=== PATIENT | male | born 1965 | race Caucasian/White ===

== ENCOUNTER 2017-09-04 18:26 | Inpatient (IN) ==
--- NOTE | 2017-09-04 19:48 | Emergency Department Note ---
Disposition Clinical Impression: SIRS (systemic inflammatory response syndrome), Fever of unknown origin (FUO) Disposition: Admitted As Inpatient Condition: Good General Adult HPI - General Chief complaint: ED Back Pain/Injury Stated complaint: Left shoulder pain Time Seen by Provider: 09/04/17 19:13 Source: patient, family Limitations: no limitations Nursing Notes Reviewed: Yes Vital Signs Reviewed: Yes - History of Present Illness HPI Narrative: Patient presents today for evaluation of back pain. Patient states that he thought he felt warm but upon presentation his fever is 103. Patient is tachycardic at 120. Patient states that he has back pain in his left shoulder blade. 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 Patient is felt pain since this time. He states that the pain has been worse with movement of his arm but still has full range of motion and complete functional use. Patient does not have chest pain and does not have shortness of breath. Patient does not have viral URI symptoms or influenza symptoms. Patient will undergo further evaluation of sepsis. Pain Scale: 10 - Related Data Allergies Allergy/AdvReac Type Severity Reaction Status Date / Time No Known Allergies Allergy Verified 09/04/17 18:31 Review of Systems: CONSTITUTIONAL: Fever No weight loss, chills, weakness or fatigue. HEENT: Eyes: No visual changes. Ears, Nose, Throat: No hearing loss, difficulty talking or unable to swallow. SKIN: No rash or itching. CARDIOVASCULAR: No chest pain, chest pressure or chest discomfort. No palpitations or edema. RESPIRATORY: No shortness of breath, cough or sputum. GASTROINTESTINAL: No anorexia, nausea, vomiting or diarrhea. No abdominal pain or blood. GENITOURINARY: No burning on urination or hematuria. NEUROLOGICAL: No headache, dizziness, syncope, paralysis, ataxia, numbness or tingling in the extremities. No change in bowel or bladder control. MUSCULOSKELETAL: back pain; No muscle pain, joint pain or stiffness. Past Medical History - Past Medical History Medical history: Reports: no medical history Psychiatric history: Reports: no psych history - Social History Smoking Status: Never smoker Alcohol use: Reports: none Drug use: Reports: none Physical Exam General: Well appearing, nontoxic, no acute distress Head: Normocephalic Atraumatic Eyes: PERRL, EOMI ENT: Airway patent, no stridor Neck: supple, no meningismus Chest: Lungs clear to auscultation bilateral Cardiac: Regular rhythm, no murmurs, rubs or gallops Abdomen: soft, nontender, nondistended; no guarding, rebound, or tenderness to percussion Musculoskeletal: Calves symmetric, nontender, no palpable cord Skin: No rash, normal skin tone Neuro: Alert and Oriented to person, place, and time; No focal deficit, CN 2-12 symmetric and intact - General Limitations: no limitations General appearance: alert, in no apparent distress Course - Reevaluation(s) Reevaluation #1: On reevaluation the patient's left shoulder pain and back pain have resolved. Patient was only given a gram of Tylenol and was not given any narcotics. Patient states he still feels a little woozy but does not have chest pain pain abdominal pain or nausea vomiting diarrhea problems with urination. Reevaluation #2: The patient's urine does have large amount of blood with only a few RBCs. CPK is normal. Lactic acid mildly elevated. He has been given empiric antibiotics and will be admitted for further observation. - Consultations Consultation #1: Discussed with Dr. Smith. Patient accepted for admission. Consultation #2: Discussed with radiologist at the request of the hospitalist. With a can see on the CT which includes the scapula and most of the surrounding muscles there is no myositis or atrophy. The CT scan does not completely evaluate the entirety of the glenohumeral joint. If there is concern for septic joint within this joint and an MRI would be a better study to CT scan. I relayed these messages to the hospitalist. However, I do not believe that this patient has a septic shoulder as his pain was relieved in the emergency department and he has full range of motion without swelling or erythema. Vital Signs Temperature 103.1 F H 09/04/17 18:28 Pulse Rate 125 09/04/17 18:28 Respiratory Rate 18 09/04/17 18:28 Blood Pressure 127/81 09/04/17 18:28 O2 Sat by Pulse Oximetry 95 09/04/17 18:28 Temperature 100.1 F H 09/04/17 23:58 Pulse Rate 95 09/04/17 23:58 Respiratory Rate 16 09/04/17 23:58 Blood Pressure 136/80 09/04/17 23:58 O2 Sat by Pulse Oximetry 96 09/04/17 23:58 Oxygen Delivery Oxygen Delivery Room Air Medical Decision Making - Medical Records Medical records reviewed: Yes I reviewed the patient's medical records. - Lab Data Lab results reviewed: Yes I reviewed the patient's lab results. Result diagrams: 09/04/17 19:58 09/04/17 19:58 Lab Results 09/04/17 09/04/17 09/04/17 Range/Units 19:53 19:58 19:58 WBC 14.3 H (4.3-11.1) K/mcL RBC 4.88 (4.19-5.50) M/mcL Hgb 15.7 (12.9-16.9) g/dL Hct 46.2 (37.5-50.1) % MCV 94.7 (83.0-100.0) fL MCH 32.2 (28.0-33.3) pg MCHC 34.0 (31.6-35.5) g/dL RDW 11.9 (11.5-14.5) % Plt Count 162 (140-400) K/mcL MPV 10.9 (9.4-12.4) fL Immature Gran % 0.5 (0-4) % Seg Neutrophils % 86.9 % Lymphocytes % 7.7 % Monocytes % 4.8 % Eosinophils % 0.0 % Basophils % 0.1 % Neutrophils # 12.4 H (1.6-8.9) K/mcL Lymphocytes # 1.1 (0.6-4.6) K/mcL Monocytes # 0.7 (0.0-1.3) K/mcL Eosinophils # 0.0 (0.0-0.6) K/mcL Basophils # 0.0 (0.0-0.2) K/mcL ESR (0-10) mm/hr PT 15.2 H (9.4-12.1) Seconds INR 1.4 APTT 28.3 (26.0-36.0) Seconds Sodium (136-145) mEq/L Potassium (3.5-5.1) mEq/L Chloride (98-107) mEq/L Carbon Dioxide (23-29) mEq/L BUN (6-20) mg/dL Creatinine (0.70-1.30) mg/dL Est GFR ( Amer) (> 60) Est GFR (Non-Af Amer) (> 60) BUN/Creatinine Ratio (6-26) Glucose (70-105) mg/dL Calculated Osmolality (280-300) Lactic Acid 2.4 H (0.5-2.2) mmol/L Calcium (8.6-10.3) mg/dL Phosphorus (2.7-4.5) mg/dL Magnesium (1.6-2.6) mg/dL Total Bilirubin (0.3-1.0) mg/dL Direct Bilirubin (0.0-0.2) mg/dL Indirect Bilirubin (0.0-1.2) mg/dL AST (13-39) Units/L ALT (7-52) Units/L Alkaline Phosphatase (34-104) Units/L Creatine Kinase (30-223) Units/L Troponin I (< 0.04) ng/mL C-Reactive Protein (Less than 10) mg/L Serum Total Protein (6.4-8.9) g/dL Albumin (3.5-5.7) g/dL Globulin (2.4-3.5) g/dL Albumin/Globulin Ratio (1.1-2.2) Urine Color (Yellow) Urine Clarity (Clear) Urine pH (5.0-8.0) pH Units Ur Specific [place] (1.010-1.025) Urine Protein (Neg-Trace) mg/dL Urine Glucose (UA) (Normal) mg/dL Urine Ketones (Negative) mg/dL Urine Blood (Negative) Urine Nitrite (Negative) Urine Bilirubin (Negative) Urine Urobilinogen (Normal) mg/dL Ur Leukocyte Esterase (Negative) Urine Microscopic RBC (0-3) per hpf Urine Microscopic WBC (0-3) per hpf Ur Squamous Epith Cells (None-Few) per lpf Urine Bacteria (None-Few) per hpf Hyaline Casts (None-Few) per lpf Urine Mucus (Few) Ur Culture Indicated? (NO) 09/04/17 09/04/17 09/04/17 Range/Units 19:58 19:58 19:58 WBC (4.3-11.1) K/mcL RBC (4.19-5.50) M/mcL Hgb (12.9-16.9) g/dL Hct (37.5-50.1) % MCV (83.0-100.0) fL MCH (28.0-33.3) pg MCHC (31.6-35.5) g/dL RDW (11.5-14.5) % Plt Count (140-400) K/mcL MPV (9.4-12.4) fL Immature Gran % (0-4) % Seg Neutrophils % % Lymphocytes % % Monocytes % % Eosinophils % % Basophils % % Neutrophils # (1.6-8.9) K/mcL Lymphocytes # (0.6-4.6) K/mcL Monocytes # (0.0-1.3) K/mcL Eosinophils # (0.0-0.6) K/mcL Basophils # (0.0-0.2) K/mcL ESR 38 H (0-10) mm/hr PT (9.4-12.1) Seconds INR APTT (26.0-36.0) Seconds Sodium 129 L (136-145) mEq/L Potassium 3.6 (3.5-5.1) mEq/L Chloride 99 (98-107) mEq/L Carbon Dioxide 20 L (23-29) mEq/L BUN 18 (6-20) mg/dL Creatinine 1.02 (0.70-1.30) mg/dL Est GFR ( Amer) > 60 (> 60) Est GFR (Non-Af Amer) > 60 (> 60) BUN/Creatinine Ratio 18 (6-26) Glucose 149 H (70-105) mg/dL Calculated Osmolality 273 L (280-300) Lactic Acid (0.5-2.2) mmol/L Calcium 8.8 (8.6-10.3) mg/dL Phosphorus 1.4 L (2.7-4.5) mg/dL Magnesium 2.0 (1.6-2.6) mg/dL Total Bilirubin 0.8 (0.3-1.0) mg/dL Direct Bilirubin 0.2 (0.0-0.2) mg/dL Indirect Bilirubin 0.6 (0.0-1.2) mg/dL AST 20 (13-39) Units/L ALT 29 (7-52) Units/L Alkaline Phosphatase 54 (34-104) Units/L Creatine Kinase 206 (30-223) Units/L Troponin I < 0.03 (< 0.04) ng/mL C-Reactive Protein 128 H (Less than 10) mg/L Serum Total Protein 7.6 (6.4-8.9) g/dL Albumin 4.1 (3.5-5.7) g/dL Globulin 3.5 (2.4-3.5) g/dL Albumin/Globulin Ratio 1.2 (1.1-2.2) Urine Color (Yellow) Urine Clarity (Clear) Urine pH (5.0-8.0) pH Units Ur Specific [place] (1.010-1.025) Urine Protein (Neg-Trace) mg/dL Urine Glucose (UA) (Normal) mg/dL Urine Ketones (Negative) mg/dL Urine Blood (Negative) Urine Nitrite (Negative) Urine Bilirubin (Negative) Urine Urobilinogen (Normal) mg/dL Ur Leukocyte Esterase (Negative) Urine Microscopic RBC (0-3) per hpf Urine Microscopic WBC (0-3) per hpf Ur Squamous Epith Cells (None-Few) per lpf Urine Bacteria (None-Few) per hpf Hyaline Casts (None-Few) per lpf Urine Mucus (Few) Ur Culture Indicated? (NO) 09/04/17 Range/Units 20:05 WBC (4.3-11.1) K/mcL RBC (4.19-5.50) M/mcL Hgb (12.9-16.9) g/dL Hct (37.5-50.1) % MCV (83.0-100.0) fL MCH (28.0-33.3) pg MCHC (31.6-35.5) g/dL RDW (11.5-14.5) % Plt Count (140-400) K/mcL MPV (9.4-12.4) fL Immature Gran % (0-4) % Seg Neutrophils % % Lymphocytes % % Monocytes % % Eosinophils % % Basophils % % Neutrophils # (1.6-8.9) K/mcL Lymphocytes # (0.6-4.6) K/mcL Monocytes # (0.0-1.3) K/mcL Eosinophils # (0.0-0.6) K/mcL Basophils # (0.0-0.2) K/mcL ESR (0-10) mm/hr PT (9.4-12.1) Seconds INR APTT (26.0-36.0) Seconds Sodium (136-145) mEq/L Potassium (3.5-5.1) mEq/L Chloride (98-107) mEq/L Carbon Dioxide (23-29) mEq/L BUN (6-20) mg/dL Creatinine (0.70-1.30) mg/dL Est GFR ( Amer) (> 60) Est GFR (Non-Af Amer) (> 60) BUN/Creatinine Ratio (6-26) Glucose (70-105) mg/dL Calculated Osmolality (280-300) Lactic Acid (0.5-2.2) mmol/L Calcium (8.6-10.3) mg/dL Phosphorus (2.7-4.5) mg/dL Magnesium (1.6-2.6) mg/dL Total Bilirubin (0.3-1.0) mg/dL Direct Bilirubin (0.0-0.2) mg/dL Indirect Bilirubin (0.0-1.2) mg/dL AST (13-39) Units/L ALT (7-52) Units/L Alkaline Phosphatase (34-104) Units/L Creatine Kinase (30-223) Units/L Troponin I (< 0.04) ng/mL C-Reactive Protein (Less than 10) mg/L Serum Total Protein (6.4-8.9) g/dL Albumin (3.5-5.7) g/dL Globulin (2.4-3.5) g/dL Albumin/Globulin Ratio (1.1-2.2) Urine Color Dark Yellow (Yellow) Urine Clarity Clear (Clear) Urine pH 5.5 (5.0-8.0) pH Units Ur Specific [place] > 1.030 H (1.010-1.025) Urine Protein 100 H (Neg-Trace) mg/dL Urine Glucose (UA) 100 H (Normal) mg/dL Urine Ketones Negative (Negative) mg/dL Urine Blood Large H (Negative) Urine Nitrite Negative (Negative) Urine Bilirubin Small H (Negative) Urine Urobilinogen 2.0 H (Normal) mg/dL Ur Leukocyte Esterase Negative (Negative) Urine Microscopic RBC 0-3 (0-3) per hpf Urine Microscopic WBC 3-5 H (0-3) per hpf Ur Squamous Epith Cells Moderate H (None-Few) per lpf Urine Bacteria None Seen (None-Few) per hpf Hyaline Casts None Seen (None-Few) per lpf Urine Mucus Few (Few) Ur Culture Indicated? NO (NO) - Radiology Data Radiology results reviewed: Yes I reviewed the patient's radiology results. - EKG Data EKG #1 EKG attestation: Yes I reviewed and interpreted this EKG. EKG results narrative: EKG shows sinus tachycardia with ventricular rate 118. Pure 146. QRS 97. QTC 319. Patient has concerns for type I [place] V1 V2 and V3. No reciprocal changes. No chest pain. Attestation Statement - Attestation Attestation: I, Deejay Singletary MD, personally evaluated this patient and discussed their management with the resident physician. I reviewed the resident's note and agree with the documented findings, medical decision making, and plan of care. 52-year-old male presents to the emergency department with a complaint of pain in his left shoulder which is actually the left scapular region. The pain started yesterday and has been constant. No known injury. No radiation of the pain. No numbness tingling or weakness in the arm. There has been no cough or fever or shortness of breath. No chest pain. Patient however was noted here to have a temperature of 103.1 on arrival. On examination patient is a well-developed obese male in no acute distress. He is alert and oriented 3. There is no cyanosis or diaphoresis. Neck is supple and nontender with full range of motion. Chest is nontender to palpation. Breath sounds are clear and equal bilaterally. Heart regular rate and rhythm. Abdomen soft and nontender with normal bowel sounds. The left elbow and left shoulder are nontender with full range of motion and normal neurovascular function distally. Labs reviewed. No acute changes on EKG. Chest x-ray negative. CT of the chest with contrast shows multiple subcentimeter pulmonary nodules. These are indeterminate. Otherwise no acute abnormality. CT of the abdomen and pelvis with IV contrast shows questionable mild circumferential wall thickening of a few loops of proximal small bowel in the left upper quadrant compatible with enteritis. No obstruction. Cholelithiasis. The hospitalist, Dr. Smith, was consulted and accepted admission of the patient
[2017-09-04 20:12] LABS: Basophils % 0.1 %; Hematocrit 46.2 % (37.5-50.1); Hemoglobin 15.7 g/dL (12.9-16.9); Immature Granulocytes % 0.5 % (0-4); Lymphocytes # 1.1 K/mcL (0.6-4.6); Lymphocytes % 7.7 %; Mean Corpuscular Hemoglobin 32.2 pg (28.0-33.3); Mean Corpuscular Volume 94.7 fL (83.0-100.0); Mean Platelet Volume 10.9 fL (9.4-12.4); Monocytes # 0.7 K/mcL (0.0-1.3); Monocytes % 4.8 %; Neutrophils # 12.4 K/mcL (1.6-8.9); Platelet Count 162 K/mcL (140-400); Red Blood Count 4.88 M/mcL (4.19-5.50); Red Cell Distribution Width 11.9 % (11.5-14.5); Segmented Neutrophils % 86.9 %
[2017-09-04 20:16] LABS: Bilirubin,Urine Small (Negative); Blood,Urine Large (Negative); Clarity,Urine Clear (Clear); Color,Urine Dark Yellow (Yellow); Glucose,Urine (UA) 100 mg/dL (Normal); Ketones,Urine Negative (Negative); Leukocyte Esterase,Urine Negative (Negative); Nitrite,Urine Negative (Negative); PH,Urine 5.5 pH Units (5.0-8.0); Protein,Urine 100 mg/dL (Neg-Trace); Specific Gravity,Urine > 1.030 (1.010-1.025)
[2017-09-04 20:17] LABS: INR 1.4; Prothrombin Time 15.2 Seconds (9.4-12.1)
[2017-09-04 20:19] LABS: Bacteria,Urine None Seen per hpf (None-Few); Hyaline Casts,Urine None Seen per lpf (None-Few); Squamous Epithelial Cell,Urine Moderate per lpf (None-Few)
[2017-09-04 20:20] LABS: Activated Partial Thrombo Time 28.3 Seconds (26.0-36.0)
[2017-09-04] MEDS: 0.9 % Sodium Chloride 1,000 ML IVC SCH (20:29)
[2017-09-04 20:30] LABS: Alanine Aminotransferase 29 Units/L (7-52); Albumin 4.1 g/dL (3.5-5.7); Albumin/Globulin Ratio 1.2 (1.1-2.2); Alkaline Phosphatase 54 Units/L (34-104); Aspartate Amino Transferase 20 Units/L (13-39); BUN/Creatinine Ratio 18 (6-26); Bilirubin,Direct 0.2 mg/dL (0.0-0.2); Bilirubin,Indirect 0.6 mg/dL (0.0-1.2); Bilirubin,Total 0.8 mg/dL (0.3-1.0); Blood Urea Nitrogen 18 mg/dL (6-20); C-Reactive Protein 128 mg/L (Less than 10); Calcium 8.8 mg/dL (8.6-10.3); Carbon Dioxide 20 mEq/L (23-29); Chloride 99 mEq/L (98-107); Creatine Kinase 206 Units/L (30-223); Globulin 3.5 g/dL (2.4-3.5); Glucose 149 mg/dL (70-105); Osmolality,Calculated 273 (280-300); Phosphorous 1.4 mg/dL (2.7-4.5); Potassium 3.6 mEq/L (3.5-5.1); Sodium 129 mEq/L (136-145); Total Protein 7.6 g/dL (6.4-8.9); eGFR For African Americans > 60 (> 60); eGFR For Non-African Americans > 60 (> 60)
[2017-09-04 20:32] LABS: Mucus,Urine Few (Few); RBC,Urine 0-3 per hpf (0-3)
[2017-09-04] MEDS ORDERED: Vancomycin 1,750 MG in D5% in Water 250 ML IVPB STA (21:58)
[2017-09-04] MEDS ORDERED: Vancomycin 1,750 MG in D5% in Water 500 ML IVPB ONE (23:00)
[2017-09-05] MEDS ORDERED: 0.9 % Sodium Chloride 1,000 ML ONE (01:05)
[2017-09-05] MEDS ORDERED: Naloxone 0.4 MG/ML INJ IVP PRN (01:35)
[2017-09-05] MEDS ORDERED: 0.9 % Sodium Chloride 1,000 ML IVC SCH ×2 (01:45→22:45)
[2017-09-05] MEDS: 0.9 % Sodium Chloride 1,000 ML IVC SCH ×4 (01:54→16:25)
[2017-09-05 03:28] LABS: Adenovirus Not Detected (Not Detect); Bordetella Pertussis Not Detected (Not Detect); Chlamydophila pneumoniae Not Detected (Not Detect); Coronavirus 229E Not Detected (Not Detect); Coronavirus HKU1 Not Detected (Not Detect); Coronavirus NL63 Not Detected (Not Detect); Coronavirus OC43 Not Detected (Not Detect); Human Metapneumovirus Not Detected (Not Detect); Human Rhinovirus/Enterovirus Not Detected (Not Detect); Influenza A Subtype 2009 H1 Not Detected (Not Detect); Influenza A Untypeable Not Detected (Not Detect); Influenza B Not Detected (Not Detect); Mycoplasma pneumoniae Not Detected (Not Detect); Parainfluenza Virus 1 Not Detected (Not Detect); Parainfluenza Virus 2 Not Detected (Not Detect); Parainfluenza Virus 3 Not Detected (Not Detect); Parainfluenza Virus 4 Not Detected (Not Detect); Respiratory Syncytial Virus Not Detected (Not Detect)
--- NOTE | 2017-09-05 04:16 | Internal Med History&Physical ---
Date of Encounter: 09/05/17 Time of Encounter: 01:00 Assessment and Plan (1) CRYSTAL (obstructive sleep apnea) Current visit: Yes Status: Acute Cont HS CPAP (2) Left shoulder pain Current visit: Yes Status: Acute Etiology is undetermined, ROM is WNL. Imaging of left shoulder on CT chest didn' t show signs of infection (reviewed by radiology), will order MRI in AM for further evaluation. Qualifiers: Chronicity: acute Qualified Code(s): M25.512 - Pain in left shoulder (3) DVT prophylaxis Current visit: Yes Status: Acute Heparin SC (4) SIRS (systemic inflammatory response syndrome) Current visit: Yes Status: Acute Pt meets SIRS criteria but infection site is not identified. - Cont cardiac monitoring. - IVF started in ER, lactate decreased from 2.4 to 0.9 after hydration, cont IVF - Empirically start vanco and zosyn, f/u blood culture, pt denies IVDU or recent travel to other countries. - Check repid strep test and respiratory virus penal (5) Fever of unknown origin (FUO) Current visit: Yes Status: Acute Management as above. Internal Medicine - H&P: HPI Chief complaint: Left shoulder pain Admitted From: Home Plans for Post Hospital Care: Home History of present illness: Mr. Samuels is a 52 year old male with Hx of CRYSTAL on CPAP present to ER for left shoulder pain, which is started yesterday. Pain is sharp, 6-7/10. Pt said pain is located on the back side of shoulder (scapular area), ROM of shoulder is generally intact. Pt denies any injury. In ER, he was found high fever to 103.1 , with leukocytosis which is neutrophil dominated. Pt denies headache, dizziness , or photophobia. He denies runny nose, cough, SOB, chest pain, nausea, vomiting , abdominal pain, diarrhea, or urination symptoms. C/O mild sore throat b/o dry. UA is negative to UTI. CXR, CT chest/abd/pelvis generally unremarkable. Flu test negative. Pt was started broad spectrum Abx in ER and blood culture drawn before abx started. Pt was admitted for SIRS and suspected sepsis. Past Med Surg Social Fam HX - Past Medical History Medical history: no medical history Psychiatric history: no psych history - Social History Smoking Status: Never smoker Smokeless Tobacco Status: No Alcohol use: none Drug use: none - Family History Father History Unknown: Yes Internal Medicine - H&P: Meds 3 Allergy/AdvReac Type Severity Reaction Status Date / Time No Known Allergies Allergy Verified 09/04/17 18:31 All Systems PM: A 10-system review of systems was performed and is negative for pertinent findings except as documented above in the HPI. - Constitutional Vitals: Temp Pulse Resp BP Pulse Ox 100.8 F H 97 15 113/72 97 09/05/17 03:54 09/05/17 03:54 09/05/17 03:54 09/05/17 03:54 09/05/17 03:54 General appearance: Present: A&O X 3, severe distress, answers questions appropriately Exam: Looks sick - Head Head exam: Present: atraumatic, normocephalic - Eye Eye exam: Present: conjunctival injection, PERRL, sclera anicteric Pupils: Present: PERRL - ENT Additional comments: Mild pharyngeal erythema w/o tonsil enlargement, no LAD - Neck Neck exam general surgery: Present: supple, trachea midline. Absent: lymphadenopathy - Respiratory Respiratory exam: Present: CTAB. Absent: accessory muscle use, rales, rhonchi, wheezes - Cardiovascular Cardiovascular exam: Present: RRR, +S1, +S2. Absent: diastolic murmur, gallop, rubs, systolic murmur - GI/Abdominal GI/Abdominal exam: Present: normal bowel sounds, soft, no peritoneal signs. Absent: distended, tenderness - Extremities Exam Extremities exam: Present: warm, radial pulses palpable and symmetrical. Absent : calf tenderness, cyanotic, pedal edema - Neurological Exam Neurological exam: Present: CN II-XII intact, oriented X3, no focal deficits. Absent: pronater drift, facial droop, speech deficit - Skin Skin exam: Present: dry, intact Internal Med - H&P Results - Labs CBC & Chem 7: 09/04/17 19:58 09/04/17 19:58
[2017-09-05] MEDS: *HR* Heparin 5,000 UNIT/ML VIAL SQ SCH ×2 (05:54→17:27)
[2017-09-05 06:18] LABS: Basophils % 0.3 %; Hematocrit 43.1 % (37.5-50.1); Hemoglobin 14.8 g/dL (12.9-16.9); Immature Granulocytes % 0.4 % (0-4); Lymphocytes % 8.7 %; Mean Corpuscular HGB Conc 34.3 g/dL (31.6-35.5); Mean Corpuscular Hemoglobin 32.2 pg (28.0-33.3); Mean Corpuscular Volume 93.7 fL (83.0-100.0); Mean Platelet Volume 10.4 fL (9.4-12.4); Monocytes # 0.7 K/mcL (0.0-1.3); Monocytes % 5.9 %; Neutrophils # 9.9 K/mcL (1.6-8.9); Platelet Count 132 K/mcL (140-400); Red Cell Distribution Width 12.2 % (11.5-14.5); Segmented Neutrophils % 84.7 %
[2017-09-05 06:50] LABS: Alanine Aminotransferase 31 Units/L (7-52); Albumin 3.9 g/dL (3.5-5.7); Albumin/Globulin Ratio 1.3 (1.1-2.2); Alkaline Phosphatase 49 Units/L (34-104); Aspartate Amino Transferase 27 Units/L (13-39); BUN/Creatinine Ratio 17 (6-26); Bilirubin,Total 1.1 mg/dL (0.3-1.0); Blood Urea Nitrogen 17 mg/dL (6-20); Calcium 8.2 mg/dL (8.6-10.3); Carbon Dioxide 24 mEq/L (23-29); Chloride 101 mEq/L (98-107); Globulin 3.1 g/dL (2.4-3.5); Glucose 132 mg/dL (70-105); Magnesium 1.9 mg/dL (1.6-2.6); Osmolality,Calculated 277 (280-300); Potassium 3.8 mEq/L (3.5-5.1); Sodium 132 mEq/L (136-145); eGFR For African Americans > 60 (> 60); eGFR For Non-African Americans > 60 (> 60)
[2017-09-05 10:42] LABS: Acinetobacter baumannii by PCR Not Detected (Not Detect); Candida albicans by PCR Not Detected (Not Detect); Candida glabrata by PCR Not Detected (Not Detect); Candida krusei by PCR Not Detected (Not Detect); Candida parapsilosis by PCR Not Detected (Not Detect); Candida tropicalis by PCR Not Detected (Not Detect); Enterococcus by PCR Not Detected (Not Detect); Escherichia coli by PCR Not Detected (Not Detect); Klebsiella oxytoca by PCR Not Detected (Not Detect); Klebsiella pneumoniae by PCR Not Detected (Not Detect); Pseudomonas aeruginosa by PCR Not Detected (Not Detect); Serratia marcescens by PCR Not Detected (Not Detect); Staphylococcus aureus by PCR ***DETECTED*** (Not Detect); Streptococcus agalactiae(B)PCR Not Detected (Not Detect); Streptococcus by PCR Not Detected (Not Detect); Streptococcus pneumoniae PCR Not Detected (Not Detect); Streptococcus pyogenes (A) PCR Not Detected (Not Detect); mecA Methicillin-Resist Gene Not Detected (Not Detect)
[2017-09-05] MEDS: Vancomycin 1,250 MG in D5% in Water 250 ML IVPB SCH ×2 (11:49→23:11)
[2017-09-05] MEDS ORDERED: cefTRIAXone 2,000 MG in Water for inj. (sterile) 20 ML 20 ML IVP SCH (17:00)
--- NOTE | 2017-09-05 17:11 | Electrocardiograph Report ---
[address] [place], [place] [address] Test Date: 2017-09-04 Pat Name: Vinod Samuels Department: 102 Room: [facility] Gender: M Lead Nurse: Celeste : 1965 Requested By: Galina Smith Order Number: [id number] Reading MD: Leanne Luque Measurements Intervals [place] Rate: 118 P: 30 [place]: 146 QRS: 1 QRSD: 97 T: 25 QT: 249 QTc: 319 Interpretive Statements SINUS TACHYCARDIA ST ELEVATION, CONSIDER ANTEROSEPTAL INJURY TYPE 1 BRUGADA PATTERN, EXCLUDE RECENT INFARCTION, CABG, MYOCARDITIS OR DRUG EFFECT [COVED-TYPE ST ELEVATION > 0.2mV WITH NEGAT Electronically Signed On 09-05-2017 17:09:31 EST by Leanne Luque
--- NOTE | 2017-09-05 17:11 | Electrocardiograph Report ---
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
[2017-09-05] MEDS: Acetaminophen 325 MG TABLET PO PRN (17:27)
[2017-09-05 20:06] LABS: Hepatitis A Antibody IgM Nonreactive (Nonreactive); Hepatitis B Core IgM Nonreactive (Nonreactive); Hepatitis B Surface Antigen Nonreactive (Nonreactive); Hepatitis C Virus Antibody Nonreactive (Nonreactive)
[2017-09-05 22:29] LABS: Adenovirus F 40/41 PCR Not detected (Not detect); Astrovirus PCR Not detected (Not detect); C.difficile Toxin A/B by PCR Not detected (Not detect); Campylobacter by PCR Not detected (Not detect); Cryptosporidium by PCR Not detected (Not detect); Cyclospora cayetanensis PCR Not detected (Not detect); E. coli O157 by PCR Not detected (Not detect); Entamoeba histolytica PCR Not detected (Not detect); Enteroaggregative E.coli(EAEC) Not detected (Not detect); Enteropathogenic E.coli(EPEC) Not detected (Not detect); Enterotoxigenic E.coli (ETEC) Not detected (Not detect); Giardia lamblia PCR Not detected (Not detect); Norovirus GI/GII PCR Not detected (Not detect); Plesiomonas shigelloides PCR Not detected (Not detect); Rotavirus A PCR Not detected (Not detect); Salmonella PCR Not detected (Not detect); Sapovirus PCR Not detected (Not detect); Shig/EnteroinvasiveE coli EIEC Not detected (Not detect); Shigalike tox-prod E coli STEC Not detected (Not detect); Vibrio PCR Not detected (Not detect); Vibrio cholerae PCR Not detected (Not detect); Yersinia enterocolitica PCR Not detected (Not detect)
--- NOTE | 2017-09-06 02:06 | Event Note ---
Date of Encounter: 09/06/17 Time of Encounter: 11:03 Currently patient still febrile. Temperature in AM notified by RN is 103 F. Patient feeling malaise and nauseated. He complains of diaphoresis. He denies any remote history of trauma, no IV drug abuse, no sexual activity within past year. No recent travel and no sick contacts. VS: reviewed: patient is febrile T max 103.0, HR ranges 93-102, blood pressure within normal limits Gen: diaphoretic male who looks in mild distress Lungs: CTAB Abd: soft, some ttp in epigastric region. Normal BS, no guarding, no peritoneal signs. Ext: Trace edema bilaterally up patient shins Skin: moist. No signs of obvious trauma after examining skin. Elbow and knee joints have no effusion, no warmth, no tenderness. Labs: WBC improved from 14 now to 11, Sodium 132 improved, Lactic acid normal, CRP 128. UA: contaminate with many epithelial cells. CT abdomen/pelvis: Questionable mild circumferential wall thickening of a few loops of proximal small bowel in the left upper quadrant compatible with enteritis. Chest x-ray: multiple subcentimeter pulmonary nodules. A/P: 1. Fever unknown origin - patient currently in sepsis, - Continue broad spectrum antibiotics, - await blood cultures - IV fluid hydration 2. Left shoulder pain - CT chest did not show any signs of infection. - MRI to evaluate further 3. CRYSTAL - CPAP at night 4. DVT prophylaxis - Heparin sq
[2017-09-06 05:13] LABS: Basophils # 0.1 K/mcL (0.0-0.2); Basophils % 0.5 %; Eosinophils % 0.2 %; Hematocrit 43.3 % (37.5-50.1); Hemoglobin 15.1 g/dL (12.9-16.9); Immature Granulocytes % 6.5 % (0-4); Lymphocytes % 18.3 %; Mean Corpuscular HGB Conc 34.9 g/dL (31.6-35.5); Mean Corpuscular Hemoglobin 32.7 pg (28.0-33.3); Mean Corpuscular Volume 93.7 fL (83.0-100.0); Mean Platelet Volume 11.8 fL (9.4-12.4); Monocytes # 0.8 K/mcL (0.0-1.3); Monocytes % 7.4 %; Neutrophils # 7.4 K/mcL (1.6-8.9); Nucleated Red Blood Cells 0.2 /100 WBC (0); Platelet Count 146 K/mcL (140-400); Red Blood Count 4.62 M/mcL (4.19-5.50); Segmented Neutrophils % 67.1 %
[2017-09-06] MEDS: Acetaminophen 325 MG TABLET PO PRN (05:28)
[2017-09-06] MEDS: *HR* Heparin 5,000 UNIT/ML VIAL SQ SCH ×2 (05:28→17:18)
[2017-09-06 06:05] LABS: Platelet Estimate Normal (Normal)
[2017-09-06 11:51] LABS: BUN/Creatinine Ratio 18 (6-26); Blood Urea Nitrogen 13 mg/dL (6-20); Calcium 8.2 mg/dL (8.6-10.3); Carbon Dioxide 22 mEq/L (23-29); Chloride 103 mEq/L (98-107); Glucose 114 mg/dL (70-105); Osmolality,Calculated 273 (280-300); Potassium 3.2 mEq/L (3.5-5.1); Sodium 131 mEq/L (136-145); eGFR For African Americans > 60 (> 60); eGFR For Non-African Americans > 60 (> 60)
[2017-09-06] MEDS ORDERED: Vancomycin 2,000 MG in D5% in Water 500 ML IVPB SCH (13:00)
[2017-09-06] MEDS ORDERED: Potassium Chloride Elixir 20 MEQ/15 ML UDC PO ONE (13:47)
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
[2017-09-06] MEDS: CeFAZolin Premix DUPLEX 2,000 MG/50 ML BAG IVPB SCH (17:17)
--- NOTE | 2017-09-06 17:41 | Internal Med Progress Note ---
Date of Encounter: 09/06/17 Time of Encounter: 14:20 - Assessment and plan (1) Staphylococcus aureus bacteremia with sepsis Current Visit: Yes Status: Acute Assessment and plan: Presented with sepsis with fever, tachycardia, leukocytosis and noted to have bacteremia. 2 out of 2 blood cultures from September 04 grew Staphylococcus aureus, pending sensitivity. No source of infection identified as yet. Infectious diseases consult appreciated, recommend discontinuing IV vancomycin and Rocephin, started on IV cefazolin. Transthoracic echocardiogram showed preserved ejection fraction, moderate left ventricular diastolic dysfunction, no valvular vegetations. (2) Left shoulder pain Current Visit: Yes Status: Acute Assessment and plan: Unclear etiology, currently resolved. CT and MRI of left shoulder showed no evidence of focal infection/abscess, did show mild arthritis and insertional supraspinatus tendinosis. Continue supportive care. Qualifiers: Chronicity: acute Qualified Code(s): M25.512 - Pain in left shoulder (3) CRYSTAL (obstructive sleep apnea) Current Visit: Yes Status: Chronic - Subjective Interval history: Reports feeling better. No fever, chills, vomiting, abdominal or chest pain. No skin ulcers or history of skin infections in the past. Reports antibiotic associated diarrhea. - Constitutional Vitals: Temp Pulse Resp BP Pulse Ox 98.9 F 90 20 116/71 96 09/06/17 16:20 09/06/17 16:20 09/06/17 16:20 09/06/17 16:20 09/06/17 16:20 General appearance: Present: A&O X 3, obese, answers questions appropriately - Respiratory Respiratory exam: Present: CTAB. Absent: accessory muscle use, rales, rhonchi, wheezes - Cardiovascular Cardiovascular exam: Present: RRR, +S1, +S2. Absent: diastolic murmur, gallop, rubs, systolic murmur - GI/Abdominal GI/Abdominal exam: Present: normal bowel sounds, soft (Obese), no peritoneal signs. Absent: distended, tenderness - Extremities Exam Extremities exam: Present: full ROM, warm, radial pulses palpable and symmetrical. Absent: calf tenderness, cyanotic, pedal edema - Neurological Exam Neurological exam: Present: CN II-XII intact, oriented X3, no focal deficits. Absent: pronater drift, facial droop, speech deficit Internal Medicine: Result - Labs CBC & Chem 7: 09/07/17 05:49 09/07/17 05:49 Labs: Short CBC 09/06/17 Range/Units 04:49 WBC 11.0 (4.3-11.1) K/mcL Hgb 15.1 (12.9-16.9) g/dL Hct 43.3 (37.5-50.1) % Plt Count 146 (140-400) K/mcL Neutrophils # 7.4 (1.6-8.9) K/mcL BMP 09/06/17 11:03 Sodium 131 L Potassium 3.2 L Chloride 103 Carbon Dioxide 22 L BUN 13 Creatinine 0.72 Glucose 114 H Calcium 8.2 L - ABG Interpretation ABG results: PT/INR, D-dimer PT 15.2 Seconds (9.4-12.1) H 09/04/17 19:58 - Impressions Impressions Echocardiogram 09/06/17 18:16 Impressions: LVEF 55%. Moderate left ventricular diastolic dysfunction. Normal right ventricular structure and function. Mild tricuspid regurgitation. No pulmonary hypertension. Valvular vegetations not visualized on this study. Left Ventricular Wall Motion: Rest Echo Findings All wall segments showed normal motion. Findings: Study Quality * Technically challenging due to body habitus. ECG Findings * Normal sinus rhythm. Left Ventricle * LVEF 55%. * Moderate left ventricular diastolic dysfunction. * Normal LV chamber size, wall thickness and function. Right Ventricle * Normal right ventricular structure and function. Left Atrium * Normal left atrial size. Right Atrium * Normal right atrial size. Aortic Valve * No aortic regurgitation. * Trileaflet aortic valve. * No aortic stenosis. Mitral Valve * Normal mitral valve structure. * No mitral stenosis. * Trace mitral regurgitation. Tricuspid Valve * Tricuspid valve not well visualized. * Mild tricuspid regurgitation. * Estimated RA pressure is 3 mmHg. * Estimated RVSP is 24 mmHg. * No pulmonary hypertension. Pulmonic Valve * Pulmonic valve is not well visualized. * No pulmonic stenosis. * No pulmonic regurgitation. Pulmonary Artery * Pulmonary artery not well visualized. Aorta * Normally sized aortic root. * Ascending aorta not well visualized. Pericardium * There is no pericardial effusion present. Interatrial Septum * No evidence of PFO by color Doppler. IVC * Normal IVC dimensions and inspiratory collapse. Consult Discharge Plan - Plan Referrals: Sherry Waller MD [Primary Care Provider] -
[2017-09-07 06:13] LABS: Basophils % 0.3 %; Eosinophils # 0.1 K/mcL (0.0-0.6); Eosinophils % 1.1 %; Hematocrit 40.1 % (37.5-50.1); Hemoglobin 13.9 g/dL (12.9-16.9); Immature Granulocytes % 0.5 % (0-4); Lymphocytes # 1.9 K/mcL (0.6-4.6); Lymphocytes % 28.7 %; Mean Corpuscular HGB Conc 34.7 g/dL (31.6-35.5); Mean Corpuscular Hemoglobin 32.3 pg (28.0-33.3); Mean Platelet Volume 11.4 fL (9.4-12.4); Monocytes # 0.9 K/mcL (0.0-1.3); Monocytes % 13.5 %; Neutrophils # 3.7 K/mcL (1.6-8.9); Platelet Count 136 K/mcL (140-400); Red Blood Count 4.31 M/mcL (4.19-5.50); Segmented Neutrophils % 55.9 %
[2017-09-07 06:21] LABS: BUN/Creatinine Ratio 19 (6-26); Blood Urea Nitrogen 14 mg/dL (6-20); Calcium 8.1 mg/dL (8.6-10.3); Carbon Dioxide 24 mEq/L (23-29); Chloride 102 mEq/L (98-107); Glucose 106 mg/dL (70-105); Magnesium 2.3 mg/dL (1.6-2.6); Osmolality,Calculated 271 (280-300); Potassium 3.5 mEq/L (3.5-5.1); Sodium 130 mEq/L (136-145); eGFR For African Americans > 60 (> 60); eGFR For Non-African Americans > 60 (> 60)
[2017-09-07] MEDS: *HR* Heparin 5,000 UNIT/ML VIAL SQ SCH ×2 (07:14→19:47)
[2017-09-07] MEDS: CeFAZolin Premix DUPLEX 2,000 MG/50 ML BAG IVPB SCH ×4 (07:14→23:54)
[2017-09-07] MEDS ORDERED: Aminoglycoside Consult 1 EACH MC ONE (08:20)
--- NOTE | 2017-09-07 08:41 | Infectious Disease Progress No ---
Date of Encounter: 09/07/17 Time of Encounter: 08:41 - Assessment and Plan (1) Sepsis Current Visit: Yes Status: Acute Presented with fever, tachycardia, leukocytosis. Lactic acidosis. afebrile, not tachycardic Leukocytosis and lactic acidosis resolved. Secondary to MSSA bacteremia Qualifiers: Sepsis type: methicillin susceptible Staphylococcus aureus Qualified Code(s ): A41.01 - Sepsis due to Methicillin susceptible Staphylococcus aureus (2) Staphylococcus aureus bacteremia with sepsis Current Visit: Yes Status: Acute 52-year-old male initially presented with left shoulder pain but was found to have fever 103. 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 Echocardiogram shows EF of 55% with no evidence of vegetations. Denies previous history of infections, IV drug use, patient is not sexually active. 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 Absent Osler nodes, Janeway lesions, spinal tenderness, subconjunctival hemorrhages. Denies any hardware, pretty surgeries. Patient needs one major Juan criteria for MSSA bacteremia and one minor for fever. Continue cefazolin 2 gram IV q8 monitor labs and for drug toxicity CrCl 146 blood cultures repeated AM: if negative for 48 hours will need PICC placed. BRANDON planned for this morning. 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 MRI of left shoulder was positive for insertional supraspinatus tendinosis. Negative for infection. Reports pain is improved but continues to have tenderness to palpation in the left scapular area. Plan as per primary. Qualifiers: Chronicity: acute Qualified Code(s): M25.512 - Pain in left shoulder (4) CRYSTAL (obstructive sleep apnea) Current Visit: Yes Status: Acute hx of CRYSTAL on CPAP at home CPAP at night - Subjective Interval history: No acute events overnight. Patient awaiting BRANDON procedure today. He denies headache, chest pain, palpitations, shortness of breath, cough, sputum production, abdominal pain, nausea, vomiting, diarrhea. Infect Dis PN-Objective Data - Labs CBC & Chem 7: 09/07/17 05:49 09/07/17 05:49 Labs: Laboratory Results - last 24 hr 09/06/17 09/06/17 09/07/17 11:03 11:03 05:49 WBC 6.5 RBC 4.31 Hgb 13.9 Hct 40.1 MCV 93.0 MCH 32.3 MCHC 34.7 RDW 12.0 Plt Count 136 L MPV 11.4 Immature Gran % 0.5 Seg Neutrophils % 55.9 Lymphocytes % 28.7 Monocytes % 13.5 Eosinophils % 1.1 Basophils % 0.3 Neutrophils # 3.7 Lymphocytes # 1.9 Monocytes # 0.9 Eosinophils # 0.1 Basophils # 0.0 Sodium 131 L Potassium 3.2 L Chloride 103 Carbon Dioxide 22 L BUN 13 Creatinine 0.72 Est GFR ( Amer) > 60 Est GFR (Non-Af Amer) > 60 BUN/Creatinine Ratio 18 Glucose 114 H Calculated Osmolality 273 L Calcium 8.2 L Magnesium Vancomycin Trough 4.0 L 09/07/17 05:49 WBC RBC Hgb Hct MCV MCH MCHC RDW Plt Count MPV Immature Gran % Seg Neutrophils % Lymphocytes % Monocytes % Eosinophils % Basophils % Neutrophils # Lymphocytes # Monocytes # Eosinophils # Basophils # Sodium 130 L Potassium 3.5 Chloride 102 Carbon Dioxide 24 BUN 14 Creatinine 0.73 Est GFR ( Amer) > 60 Est GFR (Non-Af Amer) > 60 BUN/Creatinine Ratio 19 Glucose 106 H Calculated Osmolality 271 L Calcium 8.1 L Magnesium 2.3 Vancomycin Trough Cultures: Cultures 09/05/17 02:00 Throat Culture - Final Throat No Group A Beta Streptococcus isolated. Group A Streptococcus Rapid Screen - Preliminary Serology 09/05/17 09/05/17 09/05/17 Range/Units 20:40 19:14 19:14 Stl C. cayetanensis PCR Not detected (Not detect) Stool Rotavirus A PCR Not detected (Not detect) Stl Adenov F 40/41 PCR Not detected (Not detect) Stool Astrovirus (PCR) Not detected (Not detect) Stool Campylobacter PCR Not detected (Not detect) Stl C. diff Tox A/B PCR Not detected (Not detect) Stool Cryptosporidium PCR Not detected (Not detect) Stl Sh Tox Pr E STEC PCR Not detected (Not detect) Stool E coli O157 PCR Not detected (Not detect) Stl Enterotoxigenic E PCR Not detected (Not detect) Stool EPEC (PCR) Not detected (Not detect) Stool EAEC (PCR) Not detected (Not detect) Stl E. histolytica PCR Not detected (Not detect) Stool Giardia Lamblia PCR Not detected (Not detect) Stool Salmonella PCR Not detected (Not detect) Stool Sapovirus (PCR) Not detected (Not detect) Stl P. shigelloides PCR Not detected (Not detect) Stl Shigella/EIEC PCR Not detected (Not detect) St Y.enterocolitica PCR Not detected (Not detect) Stool Vibrio (PCR) Not detected (Not detect) Stl Vibrio cholerae PCR Not detected (Not detect) Stl Norovirus GI/GII PCR Not detected (Not detect) Stl GI Panel (PCR) Com See below Chlamy pneumoniae PCR (Not Detect) Adenovirus (PCR) (Not Detect) B. pertussis DNA (PCR) (Not Detect) B.parapertussis DNA PCR (Not Detect) Coronavirus OC43 (PCR) (Not Detect) Coronavirus HKU1 (PCR) (Not Detect) Coronavirus 229E (PCR) (Not Detect) Coronavirus NL63 (PCR) (Not Detect) Hepatitis A IgM Ab Nonreactive (Nonreactive) Hep Bs Antigen Nonreactive (Nonreactive) Hep B Core IgM Ab Nonreactive (Nonreactive) Hepatitis C Ab Screen Nonreactive (Nonreactive) HIV Ag/Ab Combo Qual Nonreactive (Nonreactive) Human Metapneumovir PCR (Not Detect) Influenza A (H1) PCR (Not Detect) Influ A (H1N1/09) PCR (Not Detect) Influenza A (H3) PCR (Not Detect) Influenza A Untype (PCR) (Not Detect) Influenza Type B (PCR) (Not Detect) M.pneumoniae DNA (PCR) (Not Detect) Parainfluenza 1 (PCR) (Not Detect) Parainfluenza 2 (PCR) (Not Detect) Parainfluenza 3 (PCR) (Not Detect) Parainfluenza 4 (PCR) (Not Detect) RSV (PCR) (Not Detect) Entero/Rhino (PCR) (Not Detect) 09/05/17 Range/Units 02:00 Stl C. cayetanensis PCR (Not detect) Stool Rotavirus A PCR (Not detect) Stl Adenov F 40/41 PCR (Not detect) Stool Astrovirus (PCR) (Not detect) Stool Campylobacter PCR (Not detect) Stl C. diff Tox A/B PCR (Not detect) Stool Cryptosporidium PCR (Not detect) Stl Sh Tox Pr E STEC PCR (Not detect) Stool E coli O157 PCR (Not detect) Stl Enterotoxigenic E PCR (Not detect) Stool EPEC (PCR) (Not detect) Stool EAEC (PCR) (Not detect) Stl E. histolytica PCR (Not detect) Stool Giardia Lamblia PCR (Not detect) Stool Salmonella PCR (Not detect) Stool Sapovirus (PCR) (Not detect) Stl P. shigelloides PCR (Not detect) Stl Shigella/EIEC PCR (Not detect) St Y.enterocolitica PCR (Not detect) Stool Vibrio (PCR) (Not detect) Stl Vibrio cholerae PCR (Not detect) Stl Norovirus GI/GII PCR (Not detect) Stl GI Panel (PCR) Com Chlamy pneumoniae PCR Not Detected (Not Detect) Adenovirus (PCR) Not Detected (Not Detect) B. pertussis DNA (PCR) Not Detected (Not Detect) B.parapertussis DNA PCR Not Detected (Not Detect) Coronavirus OC43 (PCR) Not Detected (Not Detect) Coronavirus HKU1 (PCR) Not Detected (Not Detect) Coronavirus 229E (PCR) Not Detected (Not Detect) Coronavirus NL63 (PCR) Not Detected (Not Detect) Hepatitis A IgM Ab (Nonreactive) Hep Bs Antigen (Nonreactive) Hep B Core IgM Ab (Nonreactive) Hepatitis C Ab Screen (Nonreactive) HIV Ag/Ab Combo Qual (Nonreactive) Human Metapneumovir PCR Not Detected (Not Detect) Influenza A (H1) PCR Not Detected (Not Detect) Influ A (H1N1/09) PCR Not Detected (Not Detect) Influenza A (H3) PCR Not Detected (Not Detect) Influenza A Untype (PCR) Not Detected (Not Detect) Influenza Type B (PCR) Not Detected (Not Detect) M.pneumoniae DNA (PCR) Not Detected (Not Detect) Parainfluenza 1 (PCR) Not Detected (Not Detect) Parainfluenza 2 (PCR) Not Detected (Not Detect) Parainfluenza 3 (PCR) Not Detected (Not Detect) Parainfluenza 4 (PCR) Not Detected (Not Detect) RSV (PCR) Not Detected (Not Detect) Entero/Rhino (PCR) Not Detected (Not Detect) - Impressions Impressions Echocardiogram 09/06/17 18:16 Impressions: LVEF 55%. Moderate left ventricular diastolic dysfunction. Normal right ventricular structure and function. Mild tricuspid regurgitation. No pulmonary hypertension. Valvular vegetations not visualized on this study. Left Ventricular Wall Motion: Rest Echo Findings All wall segments showed normal motion. Findings: Study Quality * Technically challenging due to body habitus. ECG Findings * Normal sinus rhythm. Left Ventricle * LVEF 55%. * Moderate left ventricular diastolic dysfunction. * Normal LV chamber size, wall thickness and function. Right Ventricle * Normal right ventricular structure and function. Left Atrium * Normal left atrial size. Right Atrium * Normal right atrial size. Aortic Valve * No aortic regurgitation. * Trileaflet aortic valve. * No aortic stenosis. Mitral Valve * Normal mitral valve structure. * No mitral stenosis. * Trace mitral regurgitation. Tricuspid Valve * Tricuspid valve not well visualized. * Mild tricuspid regurgitation. * Estimated RA pressure is 3 mmHg. * Estimated RVSP is 24 mmHg. * No pulmonary hypertension. Pulmonic Valve * Pulmonic valve is not well visualized. * No pulmonic stenosis. * No pulmonic regurgitation. Pulmonary Artery * Pulmonary artery not well visualized. Aorta * Normally sized aortic root. * Ascending aorta not well visualized. Pericardium * There is no pericardial effusion present. Interatrial Septum * No evidence of PFO by color Doppler. IVC * Normal IVC dimensions and inspiratory collapse. Exam - Constitutional Vitals: Temp Pulse Resp BP Pulse Ox 98.0 F 73 20 122/73 100 09/07/17 06:34 09/07/17 06:34 09/07/17 06:34 09/07/17 06:34 09/07/17 06:34 - Additional findings Additional findings: General: without distress Heart: Regular rate and rhythm with no murmur Lungs: Clear to auscultation bilaterally Abdomen: Soft nontender, nondistended positive bowel sounds Skin: warm and dry Extremities: Absent pedal edema, Neuro: Alert oriented 3 Vascular: Pedal and radial pulses 2 out of 4 Consult Discharge Plan - Plan Referrals: Sherry Waller MD [Primary Care Provider] - - Attending Attestation I examined this patient and my medical decision-making was reviewed with the Resident Physician. I agree with the documented findings, disposition and treatment plan as described except to the extent set forth below.
[2017-09-07] MEDS ORDERED: Lidocaine Viscous Oral Soln 15 ML SOLUTION MM PRN (11:59)
[2017-09-07] MEDS ORDERED: 0.9 % Sodium Chloride 500 ML IVC ONE (11:59)
[2017-09-07] MEDS ORDERED: Tetracaine/Benzocaine/Butamben 200MG/SPRAY (100SPY/BOT) MM ONE (11:59)
[2017-09-07] MEDS: *HR* FentaNYL (PF) 100 MCG/2 ML VIAL IVP PRN ×2 (12:30→12:35)
[2017-09-07] MEDS: *HR* Midazolam HCl 5 MG/5 ML VIAL IVP PRN ×2 (12:30→12:35)
--- NOTE | 2017-09-07 17:21 | Internal Med Progress Note ---
Date of Encounter: 09/07/17 Time of Encounter: 15:15 - Assessment and plan (1) Staphylococcus aureus bacteremia with sepsis Current Visit: Yes Status: Acute Assessment and plan: Presented with sepsis with fever, tachycardia, leukocytosis and noted to have bacteremia. 2 out of 2 blood cultures from September 04 grew methicillin sensitive Staphylococcus aureus; source of infection may be chronic abscess in the back. Infectious diseases consult appreciated, continue IV cefazolin. Transesophageal echocardiogram showed no evidence of endocarditis or valvular vegetations. Follow-up repeat blood cultures from today. (2) Left shoulder pain Current Visit: Yes Status: Acute Assessment and plan: Unclear etiology, currently resolved. CT and MRI of left shoulder showed no evidence of focal infection/abscess, did show mild arthritis and insertional supraspinatus tendinosis. Continue supportive care. Qualifiers: Chronicity: acute Qualified Code(s): M25.512 - Pain in left shoulder (3) CRYSTAL (obstructive sleep apnea) Current Visit: Yes Status: Chronic - Subjective Interval history: Reports feeling well. No new complaints. Reports a small lesion in his back which opens up periodically, draining thick foul-smelling purulent secretions. Currently dry and closed. Underwent transesophageal echocardiogram today. - Constitutional Vitals: Temp Pulse Resp BP Pulse Ox 98.2 F 80 20 101/74 98 09/07/17 16:35 09/07/17 16:35 09/07/17 16:35 09/07/17 16:35 09/07/17 16:35 General appearance: Present: A&O X 3, obese, answers questions appropriately - Respiratory Respiratory exam: Present: CTAB. Absent: accessory muscle use, rales, rhonchi, wheezes - Cardiovascular Cardiovascular exam: Present: RRR, +S1, +S2. Absent: diastolic murmur, gallop, rubs, systolic murmur - GI/Abdominal GI/Abdominal exam: Present: normal bowel sounds, soft (Obese), no peritoneal signs. Absent: distended, tenderness - Extremities Exam Extremities exam: Present: full ROM, warm, radial pulses palpable and symmetrical. Absent: calf tenderness, cyanotic, pedal edema - Back Exam Additional comments: Small indurated area in the upper mid back, nontender. Black spot noted but no opening or drainage at this time. - Neurological Exam Neurological exam: Present: CN II-XII intact, oriented X3, no focal deficits. Absent: pronater drift, facial droop, speech deficit - Skin Skin exam: Present: dry, intact Internal Medicine: Result - Labs CBC & Chem 7: 09/07/17 05:49 09/07/17 05:49 Labs: Short CBC 09/07/17 Range/Units 05:49 WBC 6.5 (4.3-11.1) K/mcL Hgb 13.9 (12.9-16.9) g/dL Hct 40.1 (37.5-50.1) % Plt Count 136 L (140-400) K/mcL Neutrophils # 3.7 (1.6-8.9) K/mcL BMP 09/07/17 05:49 Sodium 130 L Potassium 3.5 Chloride 102 Carbon Dioxide 24 BUN 14 Creatinine 0.73 Glucose 106 H Calcium 8.1 L - ABG Interpretation ABG results: PT/INR, D-dimer PT 15.2 Seconds (9.4-12.1) H 09/04/17 19:58 Consult Discharge Plan - Plan Referrals: Sherry Waller MD [Primary Care Provider] -
[2017-09-07 19:05] LABS: Amphetamines NEGATIVE ng/mL (Cutoff 30); Barbiturates NEGATIVE ng/mL (Cutoff 75); Benzodiazepines NEGATIVE ng/mL (Cutoff 75); Cocaine NEGATIVE ng/mL (Cutoff 30); Methadone NEGATIVE ng/mL (Cutoff 40); Methamphetamines NEGATIVE ng/mL (Cutoff 30); Opiates NEGATIVE ng/mL (Cutoff 30); Phencyclidine NEGATIVE ng/mL (Cutoff 15)
[2017-09-08 03:38] LABS: Basophils % 0.5 %; Eosinophils # 0.2 K/mcL (0.0-0.6); Eosinophils % 2.6 %; Hematocrit 38.6 % (37.5-50.1); Hemoglobin 13.6 g/dL (12.9-16.9); Immature Granulocytes % 1.2 % (0-4); Lymphocytes # 2.2 K/mcL (0.6-4.6); Mean Corpuscular HGB Conc 35.2 g/dL (31.6-35.5); Mean Corpuscular Hemoglobin 32.2 pg (28.0-33.3); Mean Corpuscular Volume 91.5 fL (83.0-100.0); Monocytes # 0.8 K/mcL (0.0-1.3); Monocytes % 11.7 %; Neutrophils # 3.4 K/mcL (1.6-8.9); Platelet Count 159 K/mcL (140-400); Red Blood Count 4.22 M/mcL (4.19-5.50); Red Cell Distribution Width 11.9 % (11.5-14.5)
[2017-09-08 03:58] LABS: BUN/Creatinine Ratio 26 (6-26); Blood Urea Nitrogen 18 mg/dL (6-20); Calcium 8.2 mg/dL (8.6-10.3); Carbon Dioxide 23 mEq/L (23-29); Chloride 103 mEq/L (98-107); Glucose 103 mg/dL (70-105); Osmolality,Calculated 280 (280-300); Potassium 3.3 mEq/L (3.5-5.1); Sodium 134 mEq/L (136-145); eGFR For African Americans > 60 (> 60); eGFR For Non-African Americans > 60 (> 60)
[2017-09-08] MEDS: *HR* Heparin 5,000 UNIT/ML VIAL SQ SCH ×2 (06:01→16:52)
--- NOTE | 2017-09-08 09:58 | Infectious Disease Progress No ---
Date of Encounter: 09/08/17 Time of Encounter: 09:51 - Assessment and Plan (1) Sepsis Current Visit: Yes Status: Acute Presented with fever, tachycardia, leukocytosis. Lactic acidosis. afebrile, not tachycardic Leukocytosis and lactic acidosis resolved. Secondary to MSSA bacteremia Qualifiers: Sepsis type: methicillin susceptible Staphylococcus aureus Qualified Code(s ): A41.01 - Sepsis due to Methicillin susceptible Staphylococcus aureus (2) Staphylococcus aureus bacteremia with sepsis Current Visit: Yes Status: Acute 52-year-old male initially presented with left shoulder pain but was found to have fever 103. 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 Echocardiogram shows EF of 55% with no evidence of vegetations. Denies previous history of infections, IV drug use, patient is not sexually active. 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 Absent Osler nodes, Janeway lesions, spinal tenderness, subconjunctival hemorrhages. Denies any hardware, pretty surgeries. Patient needs one major Juan criteria for MSSA bacteremia and one minor for fever. Continue cefazolin 2 gram IV q8 monitor labs and for drug toxicity blood cultures repeated AM: if negative for 48 hours will need PICC placed. BRANDON negative CT thoracic spine shows sebacious cyst with surrounding stranding. patient reports he has drained that cyst in the past nad has had pus like discharge with foul odor. 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 MRI of left shoulder was positive for insertional supraspinatus tendinosis. Negative for infection. Reports pain is improved but continues to have tenderness to palpation in the left scapular area. Plan as per primary. Qualifiers: Chronicity: acute Qualified Code(s): M25.512 - Pain in left shoulder (4) CRYSTAL (obstructive sleep apnea) Current Visit: Yes Status: Chronic hx of CRYSTAL on CPAP at home CPAP at night - Subjective Interval history: No acute events overnight. BRANDON negative for endocarditis. CT thoracic spine shows left cyst measuring [id number] with stranding. Patient reports he has had this for a long time and has previously drained it himself. He has tenderness to palpation over the cyst. He denies headache, chest pain, palpitations, shortness of breath, cough, sputum production, abdominal pain, nausea, vomiting , diarrhea. Infect Dis PN-Objective Data - Labs CBC & Chem 7: 09/08/17 03:02 09/08/17 03:02 Labs: Laboratory Results - last 24 hr 09/05/17 09/08/17 09/08/17 19:14 03:02 03:02 WBC 6.7 RBC 4.22 Hgb 13.6 Hct 38.6 MCV 91.5 MCH 32.2 MCHC 35.2 RDW 11.9 Plt Count 159 MPV 12.0 Immature Gran % 1.2 Seg Neutrophils % 51.0 Lymphocytes % 33.0 Monocytes % 11.7 Eosinophils % 2.6 Basophils % 0.5 Neutrophils # 3.4 Lymphocytes # 2.2 Monocytes # 0.8 Eosinophils # 0.2 Basophils # 0.0 Sodium 134 L Potassium 3.3 L Chloride 103 Carbon Dioxide 23 BUN 18 Creatinine 0.70 Est GFR ( Amer) > 60 Est GFR (Non-Af Amer) > 60 BUN/Creatinine Ratio 26 Glucose 103 Calculated Osmolality 280 Calcium 8.2 L Blood Opiate Screen NEGATIVE Buprenorphine & Metab NEGATIVE Blood Oxycodone Screen NEGATIVE Blood Methadone Screen NEGATIVE Bld Barbiturates Scrn NEGATIVE Bld Phencyclidine Scrn NEGATIVE Bld Amphetamines Scrn NEGATIVE Bl Methamphetamines Sn NEGATIVE Bl Benzodiazepine Scrn NEGATIVE Bld Cocaine/Metab Scrn NEGATIVE Bld Cannabinoid Screen NEGATIVE Bld Drug Screen Commnt SEE NOTE Cultures: Cultures 09/07/17 05:49 Blood Culture - Preliminary Peripheral Venipuncture No growth. 09/07/17 05:35 Blood Culture - Preliminary Peripheral Venipuncture No growth. 09/05/17 02:00 Throat Culture - Final Throat No Group A Beta Streptococcus isolated. Group A Streptococcus Rapid Screen - Final Serology 09/05/17 09/05/17 09/05/17 Range/Units 20:40 19:14 19:14 Stl C. cayetanensis PCR Not detected (Not detect) Stool Rotavirus A PCR Not detected (Not detect) Stl Adenov F 40/41 PCR Not detected (Not detect) Stool Astrovirus (PCR) Not detected (Not detect) Stool Campylobacter PCR Not detected (Not detect) Stl C. diff Tox A/B PCR Not detected (Not detect) Stool Cryptosporidium PCR Not detected (Not detect) Stl Sh Tox Pr E STEC PCR Not detected (Not detect) Stool E coli O157 PCR Not detected (Not detect) Stl Enterotoxigenic E PCR Not detected (Not detect) Stool EPEC (PCR) Not detected (Not detect) Stool EAEC (PCR) Not detected (Not detect) Stl E. histolytica PCR Not detected (Not detect) Stool Giardia Lamblia PCR Not detected (Not detect) Stool Salmonella PCR Not detected (Not detect) Stool Sapovirus (PCR) Not detected (Not detect) Stl P. shigelloides PCR Not detected (Not detect) Stl Shigella/EIEC PCR Not detected (Not detect) St Y.enterocolitica PCR Not detected (Not detect) Stool Vibrio (PCR) Not detected (Not detect) Stl Vibrio cholerae PCR Not detected (Not detect) Stl Norovirus GI/GII PCR Not detected (Not detect) Stl GI Panel (PCR) Com See below Chlamy pneumoniae PCR (Not Detect) Adenovirus (PCR) (Not Detect) B. pertussis DNA (PCR) (Not Detect) B.parapertussis DNA PCR (Not Detect) Coronavirus OC43 (PCR) (Not Detect) Coronavirus HKU1 (PCR) (Not Detect) Coronavirus 229E (PCR) (Not Detect) Coronavirus NL63 (PCR) (Not Detect) Hepatitis A IgM Ab Nonreactive (Nonreactive) Hep Bs Antigen Nonreactive (Nonreactive) Hep B Core IgM Ab Nonreactive (Nonreactive) Hepatitis C Ab Screen Nonreactive (Nonreactive) HIV Ag/Ab Combo Qual Nonreactive (Nonreactive) Human Metapneumovir PCR (Not Detect) Influenza A (H1) PCR (Not Detect) Influ A (H1N1/09) PCR (Not Detect) Influenza A (H3) PCR (Not Detect) Influenza A Untype (PCR) (Not Detect) Influenza Type B (PCR) (Not Detect) M.pneumoniae DNA (PCR) (Not Detect) Parainfluenza 1 (PCR) (Not Detect) Parainfluenza 2 (PCR) (Not Detect) Parainfluenza 3 (PCR) (Not Detect) Parainfluenza 4 (PCR) (Not Detect) RSV (PCR) (Not Detect) Entero/Rhino (PCR) (Not Detect) 09/05/17 Range/Units 02:00 Stl C. cayetanensis PCR (Not detect) Stool Rotavirus A PCR (Not detect) Stl Adenov F 40/41 PCR (Not detect) Stool Astrovirus (PCR) (Not detect) Stool Campylobacter PCR (Not detect) Stl C. diff Tox A/B PCR (Not detect) Stool Cryptosporidium PCR (Not detect) Stl Sh Tox Pr E STEC PCR (Not detect) Stool E coli O157 PCR (Not detect) Stl Enterotoxigenic E PCR (Not detect) Stool EPEC (PCR) (Not detect) Stool EAEC (PCR) (Not detect) Stl E. histolytica PCR (Not detect) Stool Giardia Lamblia PCR (Not detect) Stool Salmonella PCR (Not detect) Stool Sapovirus (PCR) (Not detect) Stl P. shigelloides PCR (Not detect) Stl Shigella/EIEC PCR (Not detect) St Y.enterocolitica PCR (Not detect) Stool Vibrio (PCR) (Not detect) Stl Vibrio cholerae PCR (Not detect) Stl Norovirus GI/GII PCR (Not detect) Stl GI Panel (PCR) Com Chlamy pneumoniae PCR Not Detected (Not Detect) Adenovirus (PCR) Not Detected (Not Detect) B. pertussis DNA (PCR) Not Detected (Not Detect) B.parapertussis DNA PCR Not Detected (Not Detect) Coronavirus OC43 (PCR) Not Detected (Not Detect) Coronavirus HKU1 (PCR) Not Detected (Not Detect) Coronavirus 229E (PCR) Not Detected (Not Detect) Coronavirus NL63 (PCR) Not Detected (Not Detect) Hepatitis A IgM Ab (Nonreactive) Hep Bs Antigen (Nonreactive) Hep B Core IgM Ab (Nonreactive) Hepatitis C Ab Screen (Nonreactive) HIV Ag/Ab Combo Qual (Nonreactive) Human Metapneumovir PCR Not Detected (Not Detect) Influenza A (H1) PCR Not Detected (Not Detect) Influ A (H1N1/09) PCR Not Detected (Not Detect) Influenza A (H3) PCR Not Detected (Not Detect) Influenza A Untype (PCR) Not Detected (Not Detect) Influenza Type B (PCR) Not Detected (Not Detect) M.pneumoniae DNA (PCR) Not Detected (Not Detect) Parainfluenza 1 (PCR) Not Detected (Not Detect) Parainfluenza 2 (PCR) Not Detected (Not Detect) Parainfluenza 3 (PCR) Not Detected (Not Detect) Parainfluenza 4 (PCR) Not Detected (Not Detect) RSV (PCR) Not Detected (Not Detect) Entero/Rhino (PCR) Not Detected (Not Detect) - Impressions Impressions Thoracic Spine CT 09/07/17 18:34 IMPRESSION: Suspected sebaceous cyst within the subcutaneous soft tissues of the mid back to the left of midline at the level T5 measuring 1.7 x 2.0 x 2.0 cm. Mild skin thickening and subcutaneous soft tissue stranding inferior to the sebaceous cyst suggestive of a cellulitis. Mild degenerative changes of the thoracic spine without significant spinal canal stenosis or neural foraminal narrowing evident. D/ / 09/07/2017 20:46:53 Ronald Rhodes MD / marah Interpreting Provider: Ronald Rhodes MD Exam - Constitutional Vitals: Temp Pulse Resp BP Pulse Ox 98.5 F 79 16 117/71 96 09/08/17 07:05 09/08/17 07:05 09/08/17 07:05 09/08/17 07:05 09/08/17 07:05 - Additional findings Additional findings: General: without distress Heart: Regular rate and rhythm with no murmur Lungs: Clear to auscultation bilaterally Abdomen: Soft nontender, nondistended positive bowel sounds Skin: warm and dry. left cysytic [id number] lesion tender to palpation without erythema or warmth. Extremities: Absent pedal edema, Neuro: alert oriented x3 Vascular: Pedal and radial pulses 2 out of 4 Consult Discharge Plan - Plan Referrals: Sherry Waller MD [Primary Care Provider] - - Attending Attestation I examined this patient and my medical decision-making was reviewed with the Resident Physician. I agree with the documented findings, disposition and treatment plan as described except to the extent set forth below.
[2017-09-08] MEDS: CeFAZolin Premix DUPLEX 2,000 MG/50 ML BAG IVPB SCH ×2 (10:08→18:28)
[2017-09-08] MEDS ORDERED: Potassium Chloride Elixir 20 MEQ/15 ML UDC PO ONE (14:17)
[2017-09-08] MEDS ORDERED: Lidocaine -MPF 1% 5 ML AMPUL INFILT ONE (16:57)
--- NOTE | 2017-09-08 17:54 | Internal Med Progress Note ---
Date of Encounter: 09/08/17 Time of Encounter: 14:30 - Assessment and plan (1) Staphylococcus aureus bacteremia with sepsis Status: Acute Assessment and plan: Presented with sepsis with fever, tachycardia, leukocytosis and noted to have bacteremia. 2 out of 2 blood cultures from September 04 grew methicillin sensitive Staphylococcus aureus; source of infection may be chronic abscess in the back. Infectious diseases consult appreciated, continue IV cefazolin. Patient will need at least 14 days of IV antibiotics due to staph bacteremia. Case discussed with infectious diseases. Transesophageal echocardiogram showed no evidence of endocarditis or valvular vegetations. Preliminary repeat blood cultures from yesterday negative. CT thoracic spine showed 1 x 2 cm sebaceous cyst with surrounding fat stranding , suggestive of cellulitis. Surgery consulted per ID recommendations, for possible incision and drainage. (2) Left shoulder pain Status: Acute Assessment and plan: Unclear etiology, currently resolved. CT and MRI of left shoulder showed no evidence of focal infection/abscess, did show mild arthritis and insertional supraspinatus tendinosis. Continue supportive care. Qualifiers: Chronicity: acute Qualified Code(s): M25.512 - Pain in left shoulder (3) CRYSTAL (obstructive sleep apnea) Status: Chronic - Subjective Interval history: Feels well and denies new complaints. Improving diarrhea. Continues to have upper back pain, not in distress. Upset about having to stay another night in the hospital to follow up final blood cultures. - Constitutional Vitals: Temp Pulse Resp BP Pulse Ox 98.7 F 75 18 119/75 98 09/08/17 16:42 09/08/17 16:42 09/08/17 16:42 09/08/17 16:42 09/08/17 16:42 General appearance: Present: A&O X 3, obese, answers questions appropriately - Respiratory Respiratory exam: Present: CTAB. Absent: accessory muscle use, rales, rhonchi, wheezes - Cardiovascular Cardiovascular exam: Present: RRR, +S1, +S2. Absent: diastolic murmur, gallop, rubs, systolic murmur - GI/Abdominal GI/Abdominal exam: Present: normal bowel sounds, soft (Obese), no peritoneal signs. Absent: distended, tenderness - Extremities Exam Extremities exam: Present: full ROM, warm, radial pulses palpable and symmetrical. Absent: calf tenderness, cyanotic, pedal edema - Neurological Exam Neurological exam: Present: CN II-XII intact, oriented X3, no focal deficits. Absent: pronater drift, facial droop, speech deficit Internal Medicine: Result - Labs CBC & Chem 7: 09/08/17 03:02 09/09/17 04:30 Labs: Short CBC 09/08/17 Range/Units 03:02 WBC 6.7 (4.3-11.1) K/mcL Hgb 13.6 (12.9-16.9) g/dL Hct 38.6 (37.5-50.1) % Plt Count 159 (140-400) K/mcL Neutrophils # 3.4 (1.6-8.9) K/mcL BMP 09/08/17 03:02 Sodium 134 L Potassium 3.3 L Chloride 103 Carbon Dioxide 23 BUN 18 Creatinine 0.70 Glucose 103 Calcium 8.2 L - ABG Interpretation ABG results: PT/INR, D-dimer PT 15.2 Seconds (9.4-12.1) H 09/04/17 19:58 - Impressions Impressions Thoracic Spine CT 09/07/17 18:34 IMPRESSION: Suspected sebaceous cyst within the subcutaneous soft tissues of the mid back to the left of midline at the level T5 measuring 1.7 x 2.0 x 2.0 cm. Mild skin thickening and subcutaneous soft tissue stranding inferior to the sebaceous cyst suggestive of a cellulitis. Mild degenerative changes of the thoracic spine without significant spinal canal stenosis or neural foraminal narrowing evident. D/ / 09/07/2017 20:46:53 Ronald Rhodes MD / marah Interpreting Provider: Ronald Rhodes MD Consult Discharge Plan - Plan Additional Instructions: F/up with PCP in 1-2 weeks F/up with ID in 1 week F/up with Dermatology as scheduled CALL 911, GO TO THE NEAREST EMERGENCY ROOM, OR CALL YOUR FAMILY DOCTOR IF SYMPTOMS WORSEN OR IF YOU HAVE ANY CONCERNS. KEEP PICC LINE CLEAN AND DRY. MAKE SURE TO COVER AND PROTECT IT WHEN SHOWERING. Referrals: Sherry Waller MD [Primary Care Provider] - 09/16/17 10:00 am Prescriptions: Lactobacillus Acidophilus [Acidophilus] 1 each PO BID #30 capsule
--- NOTE | 2017-09-08 20:03 | General Surgery Consult Note ---
Date of Encounter: 09/08/17 Time of Encounter: 18:40 History of Present Illness Consult date: 09/08/17 Requesting physician: Gloria Florentino History of present illness: 52 yo admitted to [facility], 09/05/17, after presenting to the emergency department with complaints of back pain, fever to 103, and tachycardia of 120. 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 The patient has a known epidermal inclusion cyst medial left scapular area. 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 The patient has undergone an extensive evaluation for septicemia and was found to have an MSSA bacteremia. Source of this bacteremia has remained obscure and today's surgery was consulted for further evaluation of the epidermal inclusion cyst left scapular areas as a potential source. Past medical history: Obstructive sleep apnea requiring CPAP Surgical history: None indicated by the patient Allergies: No known drug allergies Home medications: None Social history: Patient is ; patient denies any tobacco, alcohol or illicit drug use. Examination: Age-appropriate male seated comfortably at bedside. He is in no acute distress. The patient is 1.75 m tall 111.8 kg, BMI 36.4. The patient is afebrile, 98.4 ; pulse 85, respirations 16, blood pressure 128/89. SPO2 on room air 98% Skin: Warm, no obvious jaundice Lungs: Clear bilaterally Posterior thorax/left medial scapular area - obvious subcutaneous swelling with sinus tract consistent with an epidermal inclusion cyst. There is no drainage, inflammation, erythema, or tenderness. The EIC measures approximately 2 cm in diameter. Cardiac: Regular rate, no appreciable murmurs Abdomen: Soft, nontender. Incidental notation of cholelithiasis on CT abd/ pelvis 09/04/2017. No right upper quadrant or epigastric tenderness. No hepatosplenomegaly. No rebound. Active bowel sounds. Extremities:: No obvious clubbing, cyanosis, or edema. 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 The patient describes several injections by [employer] for lesions right lower extremity - but timeline does not correspond to the symptoms for which the patient presented to the [facility] ED. Impression: A 52-year-old male admitted to [facility], 09/05/17 after presenting to the emergency department 09/04/17 with back pain, fever, and tachycardia. Patient noted to have MSSA bacteremia but the etiology remains obscure. Surgical consultation to evaluate the long-standing epidermal inclusion cyst left scapular area as a potential source of the MSSA. No clinical findings of inflammation or infection of this lesion. No tenderness, drainage or cellulitis. I&D not indicated and unlikely to result in significant decompression of the EIC in question as the caseous material is very thick and difficult to remove without excision of the entire cystic lesion. The results of my examination were discussed with the patient. Past Med Surg Social Fam HX - Past Medical History Medical history: no medical history Psychiatric history: no psych history - Past Surgical History Surgical History: no surgical history - Social History Smoking Status: Never smoker Smokeless Tobacco Status: No Alcohol use: none Drug use: none - Family History Father History Unknown: Yes Medications and Allergies No Known Home Drugs 09/05/17 [History] 3 Allergy/AdvReac Type Severity Reaction Status Date / Time No Known Allergies Allergy Verified 09/04/17 18:31 Review of Systems All systems PM: A 10-system review of systems was performed and is negative for pertinent findings except as documented above in the HPI. General Surgery Exam Initial Vital Signs Temp Pulse Resp BP Pulse Ox 103.1 F H 125 18 127/81 95 09/04/17 18:28 09/04/17 18:28 09/04/17 18:28 09/04/17 18:28 09/04/17 18:28 Exam Initial Vital Signs Temp Pulse Resp BP Pulse Ox 103.1 F H 125 18 127/81 95 09/04/17 18:28 09/04/17 18:28 09/04/17 18:28 09/04/17 18:28 09/04/17 18:28 Results - Labs 09/08/17 03:02 09/08/17 03:02 Abnormal lab results Nucleated RBCs/100 WBC 0.2 /100 WBC (0) H 09/06/17 04:49 ESR 38 mm/hr (0-10) H 09/04/17 19:58 PT 15.2 Seconds (9.4-12.1) H 09/04/17 19:58 Sodium 134 mEq/L (136-145) L 09/08/17 03:02 Potassium 3.3 mEq/L (3.5-5.1) L 09/08/17 03:02 Calcium 8.2 mg/dL (8.6-10.3) L 09/08/17 03:02 Phosphorus 1.4 mg/dL (2.7-4.5) L 09/04/17 19:58 Total Bilirubin 1.1 mg/dL (0.3-1.0) H 09/05/17 06:00 C-Reactive Protein 128 mg/L (Less than 10) H 09/04/17 19:58 Ur Specific [place] > 1.030 (1.010-1.025) H 09/04/17 20:05 Urine Protein 100 mg/dL (Neg-Trace) H 09/04/17 20:05 Urine Glucose (UA) 100 mg/dL (Normal) H 09/04/17 20:05 Urine Blood Large (Negative) H 09/04/17 20:05 Urine Bilirubin Small (Negative) H 09/04/17 20:05 Urine Urobilinogen 2.0 mg/dL (Normal) H 09/04/17 20:05 Urine Microscopic WBC 3-5 per hpf (0-3) H 09/04/17 20:05 Ur Squamous Epith Cells Moderate per lpf (None-Few) H 09/04/17 20:05 Vancomycin Trough 4.0 mcg/mL (10-20) L 09/06/17 11:03 Staphylococcus sp PCR DETECTED (Not Detect) A 09/04/17 19:58 Staph aureus (PCR) DETECTED (Not Detect) A 09/04/17 19:58 Diabetes panel 09/08/17 Range/Units 03:02 Sodium 134 L (136-145) mEq/L Potassium 3.3 L (3.5-5.1) mEq/L Chloride 103 (98-107) mEq/L Carbon Dioxide 23 (23-29) mEq/L BUN 18 (6-20) mg/dL Creatinine 0.70 (0.70-1.30) mg/dL Glucose 103 (70-105) mg/dL Calcium 8.2 L (8.6-10.3) mg/dL Calcium panel 09/08/17 Range/Units 03:02 Calcium 8.2 L (8.6-10.3) mg/dL Pituitary panel 09/08/17 Range/Units 03:02 Sodium 134 L (136-145) mEq/L Potassium 3.3 L (3.5-5.1) mEq/L Chloride 103 (98-107) mEq/L Carbon Dioxide 23 (23-29) mEq/L BUN 18 (6-20) mg/dL Creatinine 0.70 (0.70-1.30) mg/dL Glucose 103 (70-105) mg/dL Calcium 8.2 L (8.6-10.3) mg/dL Adrenal panel 09/08/17 Range/Units 03:02 Sodium 134 L (136-145) mEq/L Potassium 3.3 L (3.5-5.1) mEq/L Chloride 103 (98-107) mEq/L Carbon Dioxide 23 (23-29) mEq/L BUN 18 (6-20) mg/dL Creatinine 0.70 (0.70-1.30) mg/dL Glucose 103 (70-105) mg/dL Calcium 8.2 L (8.6-10.3) mg/dL All other labs normal. Consult Discharge Plan - Plan Referrals: Sherry Waller MD [Primary Care Provider] -
[2017-09-09] MEDS: CeFAZolin Premix DUPLEX 2,000 MG/50 ML BAG IVPB SCH ×2 (00:40→07:55)
[2017-09-09 05:18] LABS: Chloride 104 mEq/L (98-107); Potassium 3.8 mEq/L (3.5-5.1); Sodium 135 mEq/L (136-145)
[2017-09-09 05:41] LABS: BUN/Creatinine Ratio 19 (6-26); Blood Urea Nitrogen 15 mg/dL (6-20); Calcium 8.2 mg/dL (8.6-10.3); Carbon Dioxide 25 mEq/L (23-29); Glucose 109 mg/dL (70-105); Magnesium 2.1 mg/dL (1.6-2.6); Osmolality,Calculated 281 (280-300); eGFR For African Americans > 60 (> 60); eGFR For Non-African Americans > 60 (> 60)
[2017-09-09] MEDS: *HR* Heparin 5,000 UNIT/ML VIAL SQ SCH (05:55)
--- NOTE | 2017-09-09 11:37 | Infectious Disease Progress No ---
Date of Encounter: 09/09/17 Time of Encounter: 11:35 - Assessment and Plan (1) Sepsis Current Visit: Yes Status: Acute Presented with fever, tachycardia, leukocytosis. Lactic acidosis. afebrile, not tachycardic Leukocytosis and lactic acidosis resolved. Secondary to MSSA bacteremia Qualifiers: Sepsis type: methicillin susceptible Staphylococcus aureus Qualified Code(s ): A41.01 - Sepsis due to Methicillin susceptible Staphylococcus aureus (2) Staphylococcus aureus bacteremia with sepsis Current Visit: Yes Status: Acute 52-year-old male initially presented with left shoulder pain but was found to have fever 103. Patient underwent extensive workup including: Stool panel negative, RESEARCH/PROGRAM DIRECTOR negative, hepatitis panel negative, HIV negative, Chest x-ray negative for acute process CT abdomen/pelvis shows wall thickening of small bowel in the left upper quadrant and cholelithiasis CT chest shows submillimeter lymphadenopathy Shoulder MRI shows evidence of supraspinatus tendinosis, no evidence of infection. Echocardiogram shows EF of 55% with no evidence of vegetations. Denies previous history of infections, IV drug use, patient is not sexually active. 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 Absent [place] nodes, [place] lesions, spinal tenderness, subconjunctival hemorrhages. Denies any hardware, pretty surgeries. Patient needs one major Juan criteria for MSSA bacteremia and one minor for fever. CT thoracic spine shows sebacious cyst with surrounding stranding. patient reports he has drained that cyst in the past nad has had pus like discharge with foul odor. monitor labs and for drug toxicity Blood cultures negative for 48 hours. Patient can have PICC placed. BRANDON negative Surgery evaluated the patient and states he will be no benefit in incision and drainage of the left cyst. Continue cefazolin 2 g every 8 hours until 09/21/2017. 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 MRI of left shoulder was positive for insertional supraspinatus tendinosis. Negative for infection. Reports pain is improved but continues to have tenderness to palpation in the left scapular area. Plan as per primary. Qualifiers: Chronicity: acute Qualified Code(s): M25.512 - Pain in left shoulder (4) CRYSTAL (obstructive sleep apnea) Current Visit: Yes Status: Chronic hx of CRYSTAL on CPAP at home CPAP at night - Subjective Interval history: No acute events overnight. continues to have left scapular pain. He denies headache, chest pain, palpitations, shortness of breath, cough, sputum production, abdominal pain, nausea, vomiting, diarrhea. Infect Dis PN-Objective Data - Labs CBC & Chem 7: 09/08/17 03:02 09/09/17 04:30 Labs: Laboratory Results - last 24 hr 09/09/17 04:30 Sodium 135 L Potassium 3.8 Chloride 104 Carbon Dioxide 25 BUN 15 Creatinine 0.78 Est GFR ( Amer) > 60 Est GFR (Non-Af Amer) > 60 BUN/Creatinine Ratio 19 Glucose 109 H Calculated Osmolality 281 Calcium 8.2 L Magnesium 2.1 Cultures: Cultures 09/07/17 05:49 Blood Culture - Preliminary Peripheral Venipuncture No growth. 09/07/17 05:35 Blood Culture - Preliminary Peripheral Venipuncture No growth. 09/05/17 02:00 Throat Culture - Final Throat No Group A Beta Streptococcus isolated. Group A Streptococcus Rapid Screen - Final Serology 09/05/17 09/05/17 09/05/17 Range/Units 20:40 19:14 19:14 Stl C. cayetanensis PCR Not detected (Not detect) Stool Rotavirus A PCR Not detected (Not detect) Stl Adenov F 40/41 PCR Not detected (Not detect) Stool Astrovirus (PCR) Not detected (Not detect) Stool Campylobacter PCR Not detected (Not detect) Stl C. diff Tox A/B PCR Not detected (Not detect) Stool Cryptosporidium PCR Not detected (Not detect) Stl Sh Tox Pr E STEC PCR Not detected (Not detect) Stool E coli O157 PCR Not detected (Not detect) Stl Enterotoxigenic E PCR Not detected (Not detect) Stool EPEC (PCR) Not detected (Not detect) Stool EAEC (PCR) Not detected (Not detect) Stl E. histolytica PCR Not detected (Not detect) Stool Giardia Lamblia PCR Not detected (Not detect) Stool Salmonella PCR Not detected (Not detect) Stool Sapovirus (PCR) Not detected (Not detect) Stl P. shigelloides PCR Not detected (Not detect) Stl Shigella/EIEC PCR Not detected (Not detect) St Y.enterocolitica PCR Not detected (Not detect) Stool Vibrio (PCR) Not detected (Not detect) Stl Vibrio cholerae PCR Not detected (Not detect) Stl Norovirus GI/GII PCR Not detected (Not detect) Stl GI Panel (PCR) Com See below Chlamy pneumoniae PCR (Not Detect) Adenovirus (PCR) (Not Detect) B. pertussis DNA (PCR) (Not Detect) B.parapertussis DNA PCR (Not Detect) Coronavirus OC43 (PCR) (Not Detect) Coronavirus HKU1 (PCR) (Not Detect) Coronavirus 229E (PCR) (Not Detect) Coronavirus NL63 (PCR) (Not Detect) Hepatitis A IgM Ab Nonreactive (Nonreactive) Hep Bs Antigen Nonreactive (Nonreactive) Hep B Core IgM Ab Nonreactive (Nonreactive) Hepatitis C Ab Screen Nonreactive (Nonreactive) HIV Ag/Ab Combo Qual Nonreactive (Nonreactive) Human Metapneumovir PCR (Not Detect) Influenza A (H1) PCR (Not Detect) Influ A (H1N1/09) PCR (Not Detect) Influenza A (H3) PCR (Not Detect) Influenza A Untype (PCR) (Not Detect) Influenza Type B (PCR) (Not Detect) M.pneumoniae DNA (PCR) (Not Detect) Parainfluenza 1 (PCR) (Not Detect) Parainfluenza 2 (PCR) (Not Detect) Parainfluenza 3 (PCR) (Not Detect) Parainfluenza 4 (PCR) (Not Detect) RSV (PCR) (Not Detect) Entero/Rhino (PCR) (Not Detect) 09/05/17 Range/Units 02:00 Stl C. cayetanensis PCR (Not detect) Stool Rotavirus A PCR (Not detect) Stl Adenov F 40/41 PCR (Not detect) Stool Astrovirus (PCR) (Not detect) Stool Campylobacter PCR (Not detect) Stl C. diff Tox A/B PCR (Not detect) Stool Cryptosporidium PCR (Not detect) Stl Sh Tox Pr E STEC PCR (Not detect) Stool E coli O157 PCR (Not detect) Stl Enterotoxigenic E PCR (Not detect) Stool EPEC (PCR) (Not detect) Stool EAEC (PCR) (Not detect) Stl E. histolytica PCR (Not detect) Stool Giardia Lamblia PCR (Not detect) Stool Salmonella PCR (Not detect) Stool Sapovirus (PCR) (Not detect) Stl P. shigelloides PCR (Not detect) Stl Shigella/EIEC PCR (Not detect) St Y.enterocolitica PCR (Not detect) Stool Vibrio (PCR) (Not detect) Stl Vibrio cholerae PCR (Not detect) Stl Norovirus GI/GII PCR (Not detect) Stl GI Panel (PCR) Com Chlamy pneumoniae PCR Not Detected (Not Detect) Adenovirus (PCR) Not Detected (Not Detect) B. pertussis DNA (PCR) Not Detected (Not Detect) B.parapertussis DNA PCR Not Detected (Not Detect) Coronavirus OC43 (PCR) Not Detected (Not Detect) Coronavirus HKU1 (PCR) Not Detected (Not Detect) Coronavirus 229E (PCR) Not Detected (Not Detect) Coronavirus NL63 (PCR) Not Detected (Not Detect) Hepatitis A IgM Ab (Nonreactive) Hep Bs Antigen (Nonreactive) Hep B Core IgM Ab (Nonreactive) Hepatitis C Ab Screen (Nonreactive) HIV Ag/Ab Combo Qual (Nonreactive) Human Metapneumovir PCR Not Detected (Not Detect) Influenza A (H1) PCR Not Detected (Not Detect) Influ A (H1N1/09) PCR Not Detected (Not Detect) Influenza A (H3) PCR Not Detected (Not Detect) Influenza A Untype (PCR) Not Detected (Not Detect) Influenza Type B (PCR) Not Detected (Not Detect) M.pneumoniae DNA (PCR) Not Detected (Not Detect) Parainfluenza 1 (PCR) Not Detected (Not Detect) Parainfluenza 2 (PCR) Not Detected (Not Detect) Parainfluenza 3 (PCR) Not Detected (Not Detect) Parainfluenza 4 (PCR) Not Detected (Not Detect) RSV (PCR) Not Detected (Not Detect) Entero/Rhino (PCR) Not Detected (Not Detect) Exam - Constitutional Vitals: Temp Pulse Resp BP Pulse Ox 98.5 F 93 16 123/76 97 09/09/17 09:50 09/09/17 09:50 09/09/17 09:50 09/09/17 09:50 09/09/17 09:50 - Additional findings Additional findings: General: without distress Heart: Regular rate and rhythm with no murmur Lungs: Clear to auscultation bilaterally Abdomen: Soft nontender, nondistended positive bowel sounds Skin: warm and dry. left cysytic [id number] lesion tender to palpation without erythema or warmth. Extremities: Absent pedal edema, Neuro: alert oriented x3 Vascular: Pedal and radial pulses 2 out of 4 Consult Discharge Plan - Plan Additional Instructions: F/up with PCP in 1-2 weeks F/up with ID in 1 week F/up with Dermatology as scheduled CALL 911, GO TO THE NEAREST EMERGENCY ROOM, OR CALL YOUR FAMILY DOCTOR IF SYMPTOMS WORSEN OR IF YOU HAVE ANY CONCERNS. KEEP PICC LINE CLEAN AND DRY. MAKE SURE TO COVER AND PROTECT IT WHEN SHOWERING. Referrals: Sherry Waller MD [Primary Care Provider] - 09/16/17 10:00 am Prescriptions: Lactobacillus Acidophilus [Acidophilus] 1 each PO BID #30 capsule - Attending Attestation I examined this patient and my medical decision-making was reviewed with the Resident Physician. I agree with the documented findings, disposition and treatment plan as described except to the extent set forth below. Patient seen and examined. Clinically doing well. Review of system and physical exam is unremarkable. Appreciate Dr. Dhillon's recommendation. Continue cefazolin 2 g IV every 8 hours until 09/21/2017. I wrote all the scripts yesterday and they are ready. Also needs labs checked on 09/12/2017 and scripts are ready.
--- NOTE | 2017-09-09 14:04 | Discharge Summary ---
Date of Encounter: 09/09/17 Time of Encounter: 14:02 - Discharge Diagnosis (1) Staphylococcus aureus bacteremia with sepsis Priority: Primary Status: Acute (2) Left shoulder pain Priority: Primary Status: Acute Qualifiers: Chronicity: acute Qualified Code(s): M25.512 - Pain in left shoulder (3) CRYSTAL (obstructive sleep apnea) Priority: Secondary Status: Chronic - Discharge Medications Prescriptions: Lactobacillus Acidophilus [Acidophilus] 1 each PO BID #30 capsule Home Medications: Lactobacillus Acidophilus [Acidophilus] 1 each PO BID #30 capsule 09/09/17 [Rx] Allergies/Adverse Reactions: 3 Allergy/AdvReac Type Severity Reaction Status Date / Time No Known Allergies Allergy Verified 09/04/17 18:31 Procedures/tests Complete & Pending: Procedures Performed prior 72 hours Category Date Time Status CT thoracic spine w con [CT] Routine Cat Scan 09/07/17 18:34 Completed EV BRANDON transesophageal echo Routine Y 09/07/17 10:45 Completed EV echocardiogram Routine Y 09/06/17 18:16 Completed Date of admission: 09/05/17 01:35 Primary care physician: Sherry Waller MD Consults: 09/06/17 13:46 Consult to Infectious Diseases [CONS] Routine Consulting Provider: [facility] [place] Reason for Consult: Staph aureus bacteremia, sepsis- unclear etiology Call Completed: Yes 09/08/17 14:27 Consult to Surgery [CONS] Routine Consulting Provider: [facility] Reason for Consult: Sebaceous cyst in mid back, bacteremia Call Completed: Yes 09/08/17 16:30 Consult to Service Tech [CONS] Routine Reason for SW Consult: HOME IV ATB 09/08/17 16:57 Consult to Invasive Line Access Team [CONS] Routine Reason for Consult: Picc Line Insertion Line Type: PICC Discharging clinician: Gloria Florentino Anticipated date of discharge: 09/09/17 - Patient Status Disposition: Home Health Service Condition: Good Functional capacity at discharge: independent ambulation Overall status at discharge: patient is progressing back to baseline - Discharge Instructions Follow Up With: Sherry Waller MD [Primary Care Provider] - 09/16/17 10:00 am Additional Instructions: F/up with PCP in 1-2 weeks F/up with ID in 1 week F/up with Dermatology as scheduled CALL 911, GO TO THE NEAREST EMERGENCY ROOM, OR CALL YOUR FAMILY DOCTOR IF SYMPTOMS WORSEN OR IF YOU HAVE ANY CONCERNS. KEEP PICC LINE CLEAN AND DRY. MAKE SURE TO COVER AND PROTECT IT WHEN SHOWERING. - Diet and Activity Activity: resume usual activities as tolerated Diet: low fat, low cholesterol, low salt diet Hospital course: Mr. Samuels is a 52 year old male with the above medical problems, who initially presented with fever and malaise. He was noted to have SIRS criteria with fever , tachycardia, leukocytosis and was started on empiric IV antibiotics, source of infection was not identified. He did report left shoulder pain, however CT and MRI of left shoulder showed no evidence of focal infection/abscess, did show mild arthritis and insertional supraspinatus tendinosis. 2 out of 2 blood cultures from September 04 grew methicillin sensitive Staphylococcus aureus, and patient was initially on IV Rocephin and vancomycin. Transthoracic and transesophageal echocardiogram were completed with no evidence of valvular abnormality or endocarditis. Infectious diseases was consulted, antibiotics changed to IV cefazolin. Repeat blood cultures remained negative for 48 hours and patient is stable for discharge on IV cefazolin to complete a 14 day course, with outpatient ID follow-up. Home health services are being arranged for continued home IV infusion. Patient was noted to have small swelling in left upper back, with history of intermittent purulence. CT thoracic spine was obtained which showed 1 x 2 cm sebaceous cyst with surrounding fat stranding suggestive of cellulitis. Gen. surgery was consulted, recommended no incision and drainage at this time. 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 - Time Spent with Patient Total time spent providing and/or coordinating discharge services: Greater than 30 minutes (40 min) - Constitutional Vitals: Temp Pulse Resp BP Pulse Ox 98.5 F 93 16 123/76 97 09/09/17 09:50 09/09/17 09:50 09/09/17 09:50 09/09/17 09:50 09/09/17 09:50 General appearance: Present: A&O X 3, obese, answers questions appropriately - Cardiovascular Cardiovascular exam: Present: RRR, +S1, +S2. Absent: diastolic murmur, gallop, rubs, systolic murmur
--- NOTE | 2017-09-09 14:07 | Physician Discharge Referral ---
Home Health/Hosp Referral Info Transfer to: Home Health Attending Provider: Gloria Florentino Provider in Charge Post Discharge: PCP - Diagnosis (1) Staphylococcus aureus bacteremia with sepsis Priority: Primary Status: Acute (2) Left shoulder pain Priority: Primary Status: Acute (3) CRYSTAL (obstructive sleep apnea) Priority: Secondary Status: Chronic - Respiratory Orders Smoking Cessation: Smoking cessation has been advised. For more information, call the [employer] Quit Line at 4-154-QJDA-NOW. - Diet/Nutrition Diet/Nutrition Orders: Cardiac - Activity Activity Orders: Ambulate - Services Needed Following services are medically necessary services: Nursing, Home Infusion - Transfer Medications Prescriptions: Lactobacillus Acidophilus [Acidophilus] 1 each PO BID #30 capsule Home Medications: Lactobacillus Acidophilus [Acidophilus] 1 each PO BID #30 capsule 09/09/17 [Rx] Allergies/Adverse Reactions: 3 Allergy/AdvReac Type Severity Reaction Status Date / Time No Known Allergies Allergy Verified 09/04/17 18:31 Certification: Further, I certify that my clinical findings support that this patient is homebound (i.e. absences from home require considerable and taxing effort and are for medical reasons or evangelical services or infrequently or short duration when for other reasons) because: Homebound Reason: Patient requires assistance of a person or device to safely leave home, Leaving home requires considerable and taxing effort due to condition Attestation: My signature below is to certify that this patient is under my care and that I, or nurse practitioner, or a physician's orthodontic assistant working with me, has a face-to -face encounter with this patient.
[2017-09-09 14:43] VITALS: BP 138/88
== END 2017-09-09 15:34 | disposition home health service (06) | DRG 872 ==
LOC: EMEROO 18:26 → 3ANU 18:26 → SUATTDRO 09-05 01:35 → 3NENU 09-05 05:44
PROVIDERS: ADMIT Internal Medicine; ATTEND Internal Medicine